=== PATIENT | male | born 1965 | race Caucasian/White ===

== ENCOUNTER 2020-04-26 06:10 | Day surgery (SDC) | payer BC ==
[2020-04-25 11:20] VITALS: BMI 41.3
[2020-04-26] MEDS ORDERED: DEXAMETHASONE SOD PHOSPHATE/PF 10 MG/ML SDV ONE (07:18)
[2020-04-26] MEDS ORDERED: LIDOCAINE HCL/PF 1% SDV 5ML VIAL ONE (07:19)
[2020-04-26] MEDS ORDERED: LIDOCAINE HCL 2% (20ML MULTI-DOSE VIAL) ONE (07:57)
[2020-04-26] MEDS ORDERED: LIDOCAINE HCL/PF 2% SDV 5ML VIAL ONE (07:58)
[2020-04-26] MEDS ORDERED: LIDOCAINE HCL 1% PRESERVATIVE FREE - 30ML VIAL IJ ONE ×2 (08:21)
[2020-04-26] MEDS ORDERED: BUPIVACAINE HCL/PF 0.5% (5 MG/ML) 30 ML VIAL IJ ONE ×2 (08:22)
[2020-04-26] MEDS ORDERED: LIDOCAINE HCL 2% (50ML VIAL) INF ONE (08:22)
[2020-04-26] MEDS ORDERED: DEXAMETHASONE SOD PHOSPHATE 10 MG/1 ML VIAL IM ONE (08:23)
[2020-04-26] MEDS ORDERED: IOHEXOL 180 MG/1 ML ML IJ ONE (08:23)
[2020-04-26 12:23] VITALS: BP 116/68; PULSE 60; TEMP 97.8
--- NOTE | 2020-04-29 09:02 | PROC ---
Procedure Note Procedure: Preprocedure Diagnosis: Cervical spondylosis Post Procedure Diagnosis: same Anesthesia: Local Procedure Performed: Right TON, C3, C4, and C5 medial branch radiofrequency ablation Procedure: The patient was sterilely prepped and draped in the usual fashion while in the prone position. 1% Lidocaine was used to provide soft tissue anesthesia. Time out was performed. Under fluoroscopic guidance, 10mm active tip radiofrequency probes were successfully directed over the right TON, C3, C4, C5 medial branches along the waist of the articular pillars. Needle tip positions were confirmed with both sensory and motor stimulation, both of which resulted in appropriate responses in the lumbar region, and no reponse in the lower extremities. Lesions were performed at each site at a temperature of 80 degrees Celsius for duration of 90 seconds. Prior to each lesion, 0.5mL of a cocktail of 4mL of 2% lidocaine and 1mL Omnipaque 240 was injected at each site. Following each lesion, 0.5mL of solution containing 1ml dexamethasone and 2mL of .25% bupivacaine, was injected at each site. The patient tolerated the procedure well and there were no complications. The patient was taken to the post procedure recovery area in good condition. Vital signs remained stable before, after the procedure. The patient was given oral and written follow-up instructions. The patient was given a follow up appointment with me in the near future. David Acevedo DO
== END 2020-04-26 10:30 | disposition home or self-care (01) ==
LOC: JASU-SURG 06:10 → J7W 09:27 → JASU-SURG 09:27
PROVIDERS: ATTEND Pain Medicine Pain Medicine
PROC: 3E0T3TZ Introduction of Destructive Agent into Peripheral Nerves and Plexi, Percutaneous Approach (ICD-10-PCS; 2020-04-26)
PROC: BR14YZZ Fluoroscopy of Cervical Facet Joint(s) using Other Contrast (ICD-10-PCS; 2020-04-26)
PROC: 3E0T3TZ Introduction of Destructive Agent into Peripheral Nerves and Plexi, Percutaneous Approach (ICD-10-PCS; principal; 2020-04-26 08:00)
DX: M47.892 Other spondylosis, cervical region (principal)
CPT/HCPCS: 76000-TC-FY; J1100

== ENCOUNTER 2020-12-13 04:14 | Day surgery (SDC) | payer BC ==
[2020-12-10 13:04] VITALS: BMI 42.5
[2020-12-13] MEDS ORDERED: LIDOCAINE HCL 2% (20ML MULTI-DOSE VIAL) ONE (13:17)
[2020-12-13] MEDS ORDERED: LIDOCAINE HCL/PF 2% SDV 5ML VIAL ONE (13:22)
[2020-12-13] MEDS ORDERED: LIDOCAINE HCL 1% PRESERVATIVE FREE - 30ML VIAL IJ ONE (13:26)
[2020-12-13] MEDS ORDERED: LIDOCAINE HCL 2% 100 MG/5 ML DISP.SYRIN NR ONE (13:27)
[2020-12-13 14:17] VITALS: BP 140/84; PULSE 66; TEMP 97.3
== END 2020-12-13 14:50 | disposition home or self-care (01) ==
LOC: JASU-SURG 04:14
PROVIDERS: ATTEND Pain Medicine Pain Medicine
PROC: 3E0T3TZ Introduction of Destructive Agent into Peripheral Nerves and Plexi, Percutaneous Approach (ICD-10-PCS; principal; 2020-12-13 12:30)
PROC: BR14ZZZ Fluoroscopy of Cervical Facet Joint(s) (ICD-10-PCS; 2020-12-13 12:30)
DX: M47.812 Spondylosis without myelopathy or radiculopathy, cervical region (principal)
CPT/HCPCS: 76000-TC-FY

== ENCOUNTER 2021-03-28 04:20 | Day surgery (SDC) | payer BC ==
[2021-03-27 08:37] VITALS: BMI 43.1
[2021-03-28] MEDS ORDERED: LIDOCAINE HCL 2% (20ML MULTI-DOSE VIAL) ONE (11:27)
[2021-03-28] MEDS ORDERED: LIDOCAINE HCL/PF 2% SDV 5ML VIAL ONE (11:28)
[2021-03-28] MEDS ORDERED: LIDOCAINE HCL 1% PRESERVATIVE FREE - 30ML VIAL IJ ONE (11:28)
[2021-03-28] MEDS ORDERED: DEXAMETHASONE SOD PHOSPHATE 10 MG/1 ML VIAL IVPUSH ONE (11:28)
[2021-03-28] MEDS ORDERED: BUPIVACAINE HCL/PF 0.5% (5 MG/ML) 30 ML VIAL IJ ONE (11:28)
[2021-03-28] MEDS ORDERED: LIDOCAINE HCL/PF 2% SDV 5ML VIAL SQ ONE (11:43)
[2021-03-28 12:11] VITALS: TEMP 98.6
[2021-03-28 12:56] VITALS: BP 130/82; PULSE 70
== END 2021-03-28 12:40 | disposition home or self-care (01) ==
LOC: JASU-SURG 04:20
PROVIDERS: ATTEND Pain Medicine Pain Medicine
PROC: BR14YZZ Fluoroscopy of Cervical Facet Joint(s) using Other Contrast (ICD-10-PCS; 2021-03-28)
PROC: 3E0T3TZ Introduction of Destructive Agent into Peripheral Nerves and Plexi, Percutaneous Approach (ICD-10-PCS; principal; 2021-03-28 13:00)
DX: M47.812 Spondylosis without myelopathy or radiculopathy, cervical region (principal)
CPT/HCPCS: 76000-TC-FY; J1100

== ENCOUNTER 2022-12-25 10:42 | Day surgery (SDC) | payer OTHER, BC ==
[2022-12-15 13:45] VITALS: BMI 41.5
[2022-12-25] MEDS ORDERED: LIDOCAINE HCL/PF 2% SDV 5ML VIAL ONE (13:31)
[2022-12-25] MEDS ORDERED: PROPOFOL 20 ML ONE (13:31)
[2022-12-25] MEDS ORDERED: MIDAZOLAM HCL 2 MG/2 ML SINGLE DOSE VIAL ONE (13:31)
[2022-12-25] MEDS ORDERED: BUPIVACAINE HCL/PF 0.5% (5MG/ML) 10 ML VIAL ONE (13:37)
[2022-12-25] MEDS ORDERED: ceFAZolin SODIUM 1 GM VIAL ONE (14:34)
[2022-12-25] MEDS ORDERED: DEXAMETHASONE SOD PHOSPHATE 4 MG/1 ML VIAL ONE (14:38)
[2022-12-25] MEDS ORDERED: BUPIVACAINE 0.25% /EPI 1:200,000 10 ML VIAL NR ONE (14:50)
[2022-12-25] MEDS ORDERED: hydrALAZINE HCL 20 MG/ML VIAL ONE (15:12)
[2022-12-25] MEDS ORDERED: ONDANSETRON 4 MG/2 ML VIAL ONE ×2 (15:26→16:49)
[2022-12-25] MEDS ORDERED: KETOROLAC TROMETHAMINE 30 MG/1 ML VIAL ONE (15:26)
[2022-12-25] MEDS ORDERED: PROPOFOL 40 ML ONE (16:25)
[2022-12-25] MEDS ORDERED: oxyCODONE HCL 5 MG TABLET PO PRN ×4 (16:50)
[2022-12-25] MEDS ORDERED: ACETAMINOPHEN 1000 MG/100 ML BAG IVPB ONE (16:50)
[2022-12-25] MEDS ORDERED: ONDANSETRON 4 MG/2 ML VIAL IVPUSH PRN (16:50)
[2022-12-25] MEDS ORDERED: ACETAMINOPHEN INJECTION 100 ML IVPB ONE (16:58)
[2022-12-25] MEDS ORDERED: FENTANYL CITRATE/PF 50 MCG/ML VIAL ONE (16:58)
[2022-12-25] MEDS ORDERED: LACTATED RINGERS SOLUTION 1,000 ML IV SCH (17:00)
[2022-12-25] MEDS ORDERED: PROMETHAZINE HCL 25 MG/1 ML VIAL ONE (17:00)
[2022-12-25] MEDS: PROMETHAZINE HCL 25 MG/1 ML VIAL IVPB PRN ×2 (17:00→17:35)
[2022-12-25 18:17] VITALS: RESP 20
[2022-12-25 18:31] VITALS: PULSE 96; TEMP 97.3
[2022-12-25 18:36] VITALS: BP 140/84
[2022-12-25] MEDS ORDERED: BACITRACIN ZINC 15 GM TUBE TOPICAL OINTMENT TP SCH (22:00)
== END 2022-12-25 18:40 | disposition home or self-care (01) ==
LOC: FASU 10:42
PROVIDERS: ATTEND Orthopaedic Surgery
PROC: 0RNK4ZZ Release Left Shoulder Joint, Percutaneous Endoscopic Approach (ICD-10-PCS; principal; 2022-12-25 14:51)
PROC: 0LS44ZZ Reposition Left Upper Arm Tendon, Percutaneous Endoscopic Approach (ICD-10-PCS; 2022-12-25 14:51)
PROC: 0PBB4ZZ Excision of Left Clavicle, Percutaneous Endoscopic Approach (ICD-10-PCS; 2022-12-25 14:51)
DX: S46.012D Strain of muscle(s) and tendon(s) of the rotator cuff of left shoulder, subsequent encounter (principal); M75.22 Bicipital tendinitis, left shoulder; M75.52 Bursitis of left shoulder; M65.822 Other synovitis and tenosynovitis, left upper arm; S43.432D Superior glenoid labrum lesion of left shoulder, subsequent encounter; M75.02 Adhesive capsulitis of left shoulder; M19.012 Primary osteoarthritis, left shoulder; X58.XXXD Exposure to other specified factors, subsequent encounter
CPT/HCPCS: 73030-TC-LT-FY; 88304-TC; 94760; C1713

== ENCOUNTER 2023-01-01 08:29 | Emergency (ER) | payer OTHER, BC ==
[2023-01-01 08:38] VITALS: RESP 18; TEMP 98.8; BMI 41.5
[2023-01-01] MEDS ORDERED: ACETAMINOPHEN 1000 MG/100 ML BAG IVPB ONE (09:52)
[2023-01-01] MEDS ORDERED: ACETAMINOPHEN INJECTION 100 ML IVPB ONE (10:21)
[2023-01-01 10:33] LABS: INR 1.14 (0.83-1.09); PROTHROMBIN TIME (PATIENT) 13.1 SEC (9.7-13.0)
[2023-01-01 10:35] LABS: ACTIVATED PTT 29.6 SECONDS (25.2-36.5)
[2023-01-01 11:02] LABS: BILIRUBIN,TOTAL 1.1 mg/dl (0.2-1); CALCIUM 9.7 mg/dl (8.5-10); CREATININE 1.7 mg/dl (0.55-1.3); TOT PROT 7.2 g/dl (6.4-8.2)
[2023-01-01] MEDS ORDERED: ENOXAPARIN NA (PORCINE) 120 MG/0.8 ML DISP.SYRIN SQ SCH (11:45)
[2023-01-01 12:56] LABS: BASO % 0.5 % (0-2.0); EOS % 2.6 % (0-4.5); HEMOGLOBIN 14.6 GM/dL (11.7-16.9); LYMPH % 17.3 % (8-40); MCH 31.8 pg (25.7-33.7); MCHC 33.9 g/dl (32.0-35.9); MEAN CELL VOLUME 93.7 fl (80-96); MEAN PLT VOLUME 10.7 fl (7.5-11.1); MONO % 9.3 % (3.8-10.2); NEUT % 70.3 % (42.8-82.8); PLATELET COUNT 138 10^3/uL (134-434); RBC 4.59 M/mm3 (4.00-5.60); RDW 13.3 % (11.9-15.9); WHITE BLOOD COUNT 9.2 K/mm3 (4.0-10.0)
[2023-01-01 13:16] VITALS: BP 130/82; PULSE 80
[2023-01-01] MEDS ORDERED: APIXABAN 5 MG TABLET PO STA (13:40)
== END 2023-01-01 14:06 | disposition home or self-care (01) ==
LOC: FER 08:29
PROC: 3E033NZ Introduction of Analgesics, Hypnotics, Sedatives into Peripheral Vein, Percutaneous Approach (ICD-10-PCS; principal; 2023-01-01)
DX: I82.622 Acute embolism and thrombosis of deep veins of left upper extremity (principal); Z20.822 Contact with and (suspected) exposure to COVID-19
CPT/HCPCS: 0241U-QW; 36415; 73070-TC-LT-FY; 80053; 85025; 85610; 85730; 93971; 99285-25